=== PATIENT | female | born 1955 | race Caucasian/White ===

== ENCOUNTER 2016-08-14 15:30 | Emergency (ER) | payer OTHER ==
[2016-08-14 15:35] VITALS: BP 118/63; PULSE 70; RESP 16; TEMP 98.6; O2SAT 100
--- NOTE | 2016-08-14 16:43 | ED PDOC ---
HPI: General Adult Time Seen by Provider: 08/14/16 15:38 Chief Complaint (Nursing): Hip Pain Chief Complaint (Provider): Hip pain History Per: Patient History/Exam Limitations: no limitations Onset/Duration Of Symptoms: Mins (prior to arrival) Current Symptoms Are (Timing): Still Present Severity: Moderate Additional Complaint(s): 61 year old female is brought into the ED by BLS status post fall with complaints of right hip pain. She reports that she was getting off of a bus, and when she stepped down she slipped on the wet steps, and her right buttock hit the step. She reports having right hip pain and refuses to ambulate. She denies having any head trauma and loss of consciousness after the fall. Past Medical History Reviewed: Historical Data, Nursing Documentation, Vital Signs Vital Signs: Last Vital Signs Temp 98.6 F 08/14/16 15:33 Pulse 70 08/14/16 15:33 Resp 16 08/14/16 15:33 BP 118/63 08/14/16 15:33 Pulse Ox 100 08/14/16 18:04 - Medical History PMH: Anxiety, Bipolar Disorder, Depression, Schizophrenia Denies: Chronic Kidney Disease (Denied) - Surgical History Surgical History: No Surg Hx - Family History Family History: States: Unknown Family Hx - Social History Current smoker - smoking cessation education provided: Yes Alcohol: Occasional Drugs: Denies - Home Medications Home Medications: Ambulatory Orders Medication Instructions Recorded Benztropine [Cogentin] 1 mg PO BID #60 tab 03/13/16 Gabapentin [Neurontin] 300 mg PO TID #90 cap 03/13/16 Haloperidol [Haldol] 10 mg PO BID #60 tab 03/13/16 Sertraline [Zoloft] 200 mg PO DAILY #30 tab 03/13/16 hydrOXYzine HCl [Atarax] 50 mg PO BID PRN #60 tab 03/13/16 traZODone [Desyrel] 50 mg PO HS PRN #30 tab 03/13/16 - Allergies Allergies/Adverse Reactions: Allergies Allergy/AdvReac Type Severity Reaction Status Date / Time No Known Allergies Allergy Verified 08/14/16 15:33 Review of Systems Constitutional: Negative for: Fever, Chills Cardiovascular: Negative for: Chest Pain Respiratory: Negative for: Cough, Shortness of Breath, SOB with Exertion Gastrointestinal: Negative for: Nausea, Vomiting, Abdominal Pain, Diarrhea, Constipation Genitourinary Female: Negative for: Dysuria Musculoskeletal: Positive for: Other (right hip/buttock pain). Negative for: Neck Pain, Shoulder Pain, Arm Pain, Back Pain, Foot Pain Neurological: Negative for: Weakness, Numbness, Incoordination, Altered Mental Status, Headache, Other (loss of consciousness, head trauma) Physical Exam - Reviewed Nursing Documentation Reviewed: Yes Vital Signs Reviewed: Yes - Physical Exam Appears: Positive for: Well (patient moving all extremities without issue and ambulating around room to use bedpan on chair without issue when left alone in room), Non-toxic Head Exam: Positive for: ATRAUMATIC, NORMOCEPHALIC Skin: Positive for: Normal Color, Warm, Dry Neck: Positive for: Normal, Painless ROM, Supple Cardiovascular/Chest: Positive for: Regular Rate, Rhythm Respiratory: Positive for: Normal Breath Sounds. Negative for: Rhonchi, Stridor , Wheezing, Respiratory Distress Gastrointestinal/Abdominal: Positive for: Soft. Negative for: Tenderness, Mass , Distended Extremity: Positive for: Normal ROM (normal passive ROM of hip, knee, and ankle. no swelling. no deformity), Tenderness (R buttock tenderness. No bony hip tenderness). Negative for: Deformity, Swelling Neurologic/Psych: Positive for: Alert, Oriented (3x), Gait (normal) - ECG O2 Sat by Pulse Oximetry: 100 (RA) Pulse Ox Interpretation: Normal Medical Decision Making Medical Decision Makin:38 Initial impression: 61 year old female with right hip pain status post fall. Initial plan: * XRay hip right * XRay femur right * toradol 30mg IM * reevaluation Scribe Attestation: Documented by Maxine Varghese, acting as a scribe for Chasity Aviles MD. Provider Scribe Attestation: All medical record entries made by the Scribe were at my direction and personally dictated by me. I have reviewed the chart and agree that the record accurately reflects my personal performance of the history, physical exam, medical decision making, and the department course for this patient. I have also personally directed, reviewed, and agree with the discharge instructions and disposition. 6:02PM Xray negative for fracture. Patient ambulating around the ED without issue. She is requesting narcotics for pain. She reports that tylenol and motrin do not relieve her pain. I reported that I was not comfortable giving opiod medication for contusions and she needed to follow-up with PMD. She became irrate and began to yell at charge nurse and then walked out of ED. Disposition - Clinical Impression Clinical Impression: Hip pain - Disposition Disposition: Routine/Home Disposition Time: 18:03 Condition: GOOD Additional Instructions: Follow up with PMD within 2 days. Return to ED if condition worsens. Ice and motrin for pain. Instructions: Hip Contusion (ED) Print Language: [place] IRISH
[2016-08-14] MEDS ORDERED: Oxycodone/Acetaminophen 5/325 mg Tab PO ONE (16:46)
[2016-08-14] MEDS ORDERED: Oxycodone/Acetaminophen 5/325 mg Tab ONE (16:51)
--- NOTE | 2016-08-15 09:49 | RAD ---
PROCEDURE: Right femur dated 08/14/2016 HISTORY: fall COMPARISON: Correlation made with concurrent radiographs of the pelvis and right hip. TECHNIQUE: AP and lateral views of the right femur performed. FINDINGS: No evidence of acute displaced fracture nor dislocation. The osseous structures appear intact. Right femoral head is appropriately located within the right acetabulum. Hip joint appears relatively preserved. The tiny osteophytes seen arising from the superolateral margin right acetabular roof. There is also small degenerative changes at medial compartment right knee Small calcific density overlying the lateral margin right superior pubic mid ramus may represent calcified pelvic phlebolith or possibly a calcified injection granuloma right buttock IMPRESSION: No evidence of acute displaced fracture nor dislocation. See above discussion for additional incidental findings
--- NOTE | 2016-08-15 11:54 | RAD ---
PROCEDURE: Right Hip Radiographs. HISTORY: R hip pain after fall COMPARISON: None. FINDINGS: BONES: Normal. No fracture. JOINTS: Normal. SOFT TISSUES: Normal. OTHER FINDINGS: None. IMPRESSION: No evidence of acute fracture or dislocation.
== END 2016-08-14 18:20 | disposition home or self-care (01) ==
LOC: H.ER 15:30
DX: M25.551 Pain in right hip (principal); W19.XXXA Unspecified fall, initial encounter; Y92.89 Other specified places as the place of occurrence of the external cause